=== PATIENT | male | born 1990 | race Hispanic/Latino ===

== ENCOUNTER 2017-07-07 08:24 | Emergency (ER) | payer MEDICAID ==
[2017-07-07 08:29] VITALS: BP 116/75
--- NOTE | 2017-07-07 09:32 | Emergency Department Report ---
ED Psych HPI - General Chief Complaint: Medical Clearance Stated Complaint: PSYCH MED REFILL Time Seen by Provider: 07/07/17 09:08 Source: patient Mode of arrival: Ambulatory - History of Present Illness Initial Comments: Patient is a 26-year-old male with past history of mental health issues who states he is here for medication refill. Patient states she's been unable to take his Wellbutrin or Celexa for the last 2 weeks. Patient isn't a new [facility] and states that they're not really helping him with his meds. Patient states he feels depressed but is not suicidal or homicidal. Patient has no other complaints except for medication refill. Complaint: feels depressed -: week(s) (1) - Related Data Home Medications Medication Instructions Recorded Confirmed Last Taken FLUoxetine [PROzac] 20 mg PO TID 05/24/15 05/24/15 Unknown clonazePAM [Klonopin] 1 mg PO TID 05/24/15 05/24/15 Unknown Previous Rx's Medication Instructions Recorded Last Taken Type Bupropion HCl [Wellbutrin XL] 300 mg PO QAM #30 tab.er.24h 07/07/17 Unknown Rx Citalopram [celeXA] 20 mg PO QDAY #30 tablet 07/07/17 Unknown Rx Allergies Allergy/AdvReac Type Severity Reaction Status Date / Time Latex, Natural Rubber Allergy Rash Verified 05/24/15 00:08 ziprasidone HCl [From Geodon] Allergy Rash Verified 05/24/15 00:08 ziprasidone mesylate Allergy Rash Verified 05/24/15 00:08 [From Geodon] ED Review of Systems ROS: Stated complaint: PSYCH MED REFILL Other details as noted in HPI Comment: All other systems reviewed and negative ED Past Medical Hx - Past Medical History Previous Medical History?: Yes Hx Liver Disease: Yes (Hepatitis C) Hx Psychiatric Treatment: Yes (depression) - Surgical History Past Surgical History?: No - Social History Smoking Status: Current Every Day Smoker Substance Use Type: Prescribed - Medications Home Medications: Home Medications Medication Instructions Recorded Confirmed Last Taken Type FLUoxetine [PROzac] 20 mg PO TID 05/24/15 05/24/15 Unknown History clonazePAM [Klonopin] 1 mg PO TID 05/24/15 05/24/15 Unknown History Bupropion HCl [Wellbutrin XL] 300 mg PO QAM #30 tab.er.24h 07/07/17 Unknown Rx Citalopram [celeXA] 20 mg PO QDAY #30 tablet 07/07/17 Unknown Rx ED Physical Exam - General Limitations: No Limitations General appearance: alert, in no apparent distress - Head Head exam: Present: atraumatic, normocephalic - Eye Eye exam: Present: normal appearance - ENT ENT exam: Present: mucous membranes moist - Neck Neck exam: Present: normal inspection - Respiratory Respiratory exam: Present: normal lung sounds bilaterally. Absent: respiratory distress - Cardiovascular Cardiovascular Exam: Present: regular rate, normal rhythm. Absent: systolic murmur, diastolic murmur, rubs, gallop - GI/Abdominal GI/Abdominal exam: Present: soft, normal bowel sounds - Rectal Rectal exam: Present: deferred - Extremities Exam Extremities exam: Present: normal inspection - Back Exam Back exam: Present: normal inspection - Neurological Exam Neurological exam: Present: alert, oriented X3 - Psychiatric Psychiatric exam: Present: normal affect, normal mood - Skin Skin exam: Present: warm, dry, intact, normal color. Absent: rash ED Course Vital Signs 07/07/17 08:25 Temperature 98 F Pulse Rate 98 H Respiratory 20 Rate Blood Pressure 116/75 O2 Sat by Pulse 99 Oximetry ED Medical Decision Making - Medical Decision Making Patient is a nonmedical emergency however does have Medicaid and does not cope. Patient will be restarted on his medications will be discharged home. Critical care attestation.: If time is entered above; I have spent that time in minutes in the direct care of this critically ill patient, excluding procedure time. ED Disposition Clinical Impression: Medication refill Disposition: DC- TO HOME OR SELFCARE Is pt being admited?: No Does the pt Need Aspirin: No Condition: Stable Prescriptions: Bupropion HCl [Wellbutrin XL] 300 mg PO QAM #30 tab.er.24h Citalopram [celeXA] 20 mg PO QDAY #30 tablet Referrals: PRIMARY CARE, [Primary Care Provider] - 3-5 Days
== END 2017-07-07 09:52 | disposition home or self-care (01) ==
LOC: ED 08:24
DX: Z76.0 Encounter for issue of repeat prescription (principal); F32.9 Major depressive disorder, single episode, unspecified; F17.200 Nicotine dependence, unspecified, uncomplicated; Z86.19 Personal history of other infectious and parasitic diseases; Z91.040 Latex allergy status; Z88.8 Allergy status to other drugs, medicaments and biological substances
CPT/HCPCS: 99282

== ENCOUNTER 2017-07-21 01:49 | Emergency (ER) | payer MEDICAID ==
[2017-07-21 01:53] VITALS: BP 115/88
[2017-07-21] MEDS ORDERED: ULTRAM PO ONE (03:54)
--- NOTE | 2017-07-21 03:59 | Emergency Department Report ---
ED ENT HPI - General Chief complaint: Dental/Oral Stated complaint: TOOTHACHE Time Seen by Provider: 07/21/17 03:54 Source: patient Mode of arrival: Ambulatory Limitations: No Limitations - History of Present Illness Initial comments: 27-year-old male comes in for complaint of left tooth ache and left lower wisdom tooth pain intermittent 3-1/2 weeks. Patient reports that he took Motrin earlier tonight. He reports his pain is stabbing and 10 out of 10. Patient reports history of depression and hepatitis C. MD complaint: tooth pain -: week(s) (3.5) Location: tooth # (16,17) Severity: severe Severity scale (0 -10): 10 Quality: stabbing Consistency: constant, intermittent Improves with: none Worsens with: none - Related Data Home Medications Medication Instructions Recorded Confirmed Last Taken FLUoxetine [PROzac] 20 mg PO TID 05/24/15 05/24/15 Unknown clonazePAM [Klonopin] 1 mg PO TID 05/24/15 05/24/15 Unknown Previous Rx's Medication Instructions Recorded Last Taken Type Bupropion HCl [Wellbutrin XL] 300 mg PO QAM #30 tab.er.24h 07/07/17 Unknown Rx Citalopram [celeXA] 20 mg PO QDAY #30 tablet 07/07/17 Unknown Rx Amoxicillin [Amoxicillin TAB] 875 mg PO BID #20 tablet 07/21/17 Unknown Rx traMADol [Ultram 50 MG tab] 50 mg PO Q6HR PRN #20 tablet 07/21/17 Unknown Rx Allergies Allergy/AdvReac Type Severity Reaction Status Date / Time Latex, Natural Rubber Allergy Rash Verified 05/24/15 00:08 ziprasidone HCl [From Geodon] Allergy Rash Verified 05/24/15 00:08 ziprasidone mesylate Allergy Rash Verified 05/24/15 00:08 [From Geodon] ED Dental HPI - General Chief complaint: Dental/Oral Stated complaint: TOOTHACHE Time Seen by Provider: 07/21/17 03:54 Source: patient Mode of arrival: Ambulatory Limitations: No Limitations - Related Data Home Medications Medication Instructions Recorded Confirmed Last Taken FLUoxetine [PROzac] 20 mg PO TID 05/24/15 05/24/15 Unknown clonazePAM [Klonopin] 1 mg PO TID 05/24/15 05/24/15 Unknown Previous Rx's Medication Instructions Recorded Last Taken Type Bupropion HCl [Wellbutrin XL] 300 mg PO QAM #30 tab.er.24h 07/07/17 Unknown Rx Citalopram [celeXA] 20 mg PO QDAY #30 tablet 07/07/17 Unknown Rx Amoxicillin [Amoxicillin TAB] 875 mg PO BID #20 tablet 07/21/17 Unknown Rx traMADol [Ultram 50 MG tab] 50 mg PO Q6HR PRN #20 tablet 07/21/17 Unknown Rx Allergies Allergy/AdvReac Type Severity Reaction Status Date / Time Latex, Natural Rubber Allergy Rash Verified 05/24/15 00:08 ziprasidone HCl [From Geodon] Allergy Rash Verified 05/24/15 00:08 ziprasidone mesylate Allergy Rash Verified 05/24/15 00:08 [From Geodon] ED Review of Systems ROS: Stated complaint: TOOTHACHE Other details as noted in HPI Constitutional: denies: chills, fever ENT: dental pain. denies: ear pain ED Past Medical Hx - Past Medical History Previous Medical History?: Yes Hx Liver Disease: Yes (Hepatitis C) Hx Psychiatric Treatment: Yes (depression) - Surgical History Past Surgical History?: No - Social History Smoking Status: Current Every Day Smoker - Medications Home Medications: Home Medications Medication Instructions Recorded Confirmed Last Taken Type FLUoxetine [PROzac] 20 mg PO TID 05/24/15 05/24/15 Unknown History clonazePAM [Klonopin] 1 mg PO TID 05/24/15 05/24/15 Unknown History Bupropion HCl [Wellbutrin XL] 300 mg PO QAM #30 tab.er.24h 07/07/17 Unknown Rx Citalopram [celeXA] 20 mg PO QDAY #30 tablet 07/07/17 Unknown Rx Amoxicillin [Amoxicillin TAB] 875 mg PO BID #20 tablet 07/21/17 Unknown Rx traMADol [Ultram 50 MG tab] 50 mg PO Q6HR PRN #20 tablet 07/21/17 Unknown Rx ED Physical Exam - General Limitations: No Limitations General appearance: alert, in no apparent distress - Head Head exam: Present: atraumatic, normocephalic - Expanded ENT Exam Expanded Teeth exam: Present: dental caries (10), fractured tooth # (16), dental tenderness # (17), gingival enlargement - Neck Neck exam: Present: normal inspection, full ROM. Absent: lymphadenopathy ED Course Vital Signs 07/21/17 07/21/17 01:47 01:53 Temperature 97.7 F 97.9 F Pulse Rate 68 62 Respiratory 18 18 Rate Blood Pressure 115/88 115/88 O2 Sat by Pulse 98 98 Oximetry ED Medical Decision Making - Medical Decision Making Assessment evaluated by this provider fast track. We will give patient a tramadol now. Discharge patient on amoxicillin 875 twice a day for 10 days and tramadol for pain. Discussed the patient will refer him to several dentists as she needs to follow up. Patient verbalized understanding. Critical care attestation.: If time is entered above; I have spent that time in minutes in the direct care of this critically ill patient, excluding procedure time. ED Disposition Clinical Impression: Dental abscess, Dental caries, Tooth impaction Disposition: TO HOME OR SELFCARE Is pt being admited?: No Does the pt Need Aspirin: No Condition: Stable Instructions: Dental Abscess (ED), Dental Caries (ED) Additional Instructions: Please complete antibiotics as prescribed. Please take pain medication as prescribed. Please follow-up with his dentist for evaluation and treatment. Prescriptions: Amoxicillin [Amoxicillin TAB] 875 mg PO BID #20 tablet traMADol [Ultram 50 MG tab] 50 mg PO Q6HR PRN #20 tablet PRN Reason: Pain Referrals: PRIMARY CARE, [Primary Care Provider] - 3-5 Days [facility] [Outside] - 3-5 Days [facility] [Outside] - 3-5 Days [facility] [Provider Group] - 3-5 Days Forms: Work/School Release Form(ED)
== END 2017-07-21 04:23 | disposition home or self-care (01) ==
LOC: ED 01:49
DX: K04.7 Periapical abscess without sinus (principal); K02.9 Dental caries, unspecified; K01.1 Impacted teeth; F17.200 Nicotine dependence, unspecified, uncomplicated
CPT/HCPCS: 99282

== ENCOUNTER 2017-08-12 14:54 | Emergency (ER) | payer MEDICAID ==
[2017-08-12 15:19] VITALS: BP 116/72
== END 2017-08-12 15:50 | disposition left against medical advice (07) ==
LOC: ED 14:54
DX: R45.851 Suicidal ideations (principal); Z91.040 Latex allergy status; Z88.8 Allergy status to other drugs, medicaments and biological substances; Z53.21 Procedure and treatment not carried out due to patient leaving prior to being seen by health care provider

== ENCOUNTER 2017-08-28 22:27 | Emergency (ER) | payer MEDICAID ==
[2017-08-28 23:06] LABS: Basophils # (Auto) 0.1 K/mm3 (0.0-0.1); Basophils % (Auto) 0.6 % (0.0-1.8); Eosinophils % (Auto) 0.5 % (0.0-4.3); Hematocrit 47.3 % (35.5-45.6); Hemoglobin 16.1 gm/dl (11.8-15.2); Lymphocytes # (Auto) 3.1 K/mm3 (1.2-5.4); Mean Corpuscular HGB Conc 34 % (32-34); Mean Corpuscular Hemoglobin 32 pg (28-32); Mean Corpuscular Volume 93 fl (84-94); Monocytes # (Auto) 0.9 K/mm3 (0.0-0.8); Monocytes % (Auto) 9.5 % (0.0-7.3); Platelet Count 291 K/mm3 (140-440); Red Blood Count 5.07 M/mm3 (3.65-5.03)
[2017-08-28 23:15] LABS: BUN/Creatinine Ratio 30; Blood Urea Nitrogen 24 mg/dL (9-20); Calcium 10.1 mg/dL (8.4-10.2); Hemolysis Index 2
[2017-08-28 23:20] VITALS: BP 112/72
[2017-08-29 00:02] LABS: Bilirubin,Urine NEG (Negative); Blood,Urine NEG (Negative); Color,Urine Yellow (Yellow); Mucus,Urine 3+ /HPF
[2017-08-29 00:07] LABS: Benzodiazepines Screen,Urine PRESUMPTIVE NEGATIVE; Methadone Screen,Urine PRESUMPTIVE NEGATIVE; Opiate Screen,Urine PRESUMPTIVE NEGATIVE
--- NOTE | 2017-08-29 00:19 | Emergency Department Report ---
Upper Extremity - HPI Chief Complaint: Skin/Abscess/Foreign Body Stated Complaint: RT ARM PAIN Time Seen by Provider: 08/28/17 23:50 Upper Extremity: Right Shoulder, Right Forearm Occurred When: 1 Day Mechanism: Other (needle in forearm after injecting meth) Severity: mild Symptoms: Yes Bruising/Ecchymosis, No Pain with Movement, No Deformity, No Limited Range of Movement, No Numbness, No Weakness, No Swelling ED Review of Systems ROS: Stated complaint: RT ARM PAIN Other details as noted in HPI Comment: All other systems reviewed and negative Constitutional: denies: fever, malaise Respiratory: denies: cough Cardiovascular: denies: chest pain ED Past Medical Hx - Past Medical History Hx Liver Disease: Yes (Hepatitis C) Hx Psychiatric Treatment: Yes (depression) - Surgical History Past Surgical History?: No - Social History Smoking Status: Current Every Day Smoker Substance Use Type: Alcohol - Medications Home Medications: Home Medications Medication Instructions Recorded Confirmed Last Taken Type FLUoxetine [PROzac] 20 mg PO TID 05/24/15 05/24/15 Unknown History clonazePAM [Klonopin] 1 mg PO TID 05/24/15 05/24/15 Unknown History Bupropion HCl [Wellbutrin XL] 300 mg PO QAM #30 tab.er.24h 07/07/17 Unknown Rx Citalopram [celeXA] 20 mg PO QDAY #30 tablet 07/07/17 Unknown Rx Amoxicillin [Amoxicillin TAB] 875 mg PO BID #20 tablet 07/21/17 Unknown Rx traMADol [Ultram 50 MG tab] 50 mg PO Q6HR PRN #20 tablet 07/21/17 Unknown Rx Upper Extremity Exam - Exam General: Vital signs noted. No distress. Alert and acting appropriately. Well appearing patient forearm right: multiple bruises and scabs at site of injection, no palpable forearm FB, no abscesses Head and Torso: No HEENT Abnormality, No Neck Tenderness, No Chest/Lungs Abnormality, No Abdominal Tenderness Elbow: Yes Normal Range of Motion in Elbow, No Elbow Tenderness, No Elbow Deformity Forearm: No Forearm Tenderness, No Forearm Deformity, No Pain with Pronation, No Pain with Supination CMS Exam: Yes Normal Distal Pulses, Yes Normal Capillary Refill, Yes Normal Distal Sensation ED Course Vital Signs 08/28/17 08/28/17 08/28/17 22:24 22:34 23:18 Temperature 98.5 F 99.1 F 98.1 F Pulse Rate 72 70 73 Respiratory 18 16 16 Rate Blood Pressure 123/79 123/79 Blood Pressure 112/72 [Left] O2 Sat by Pulse 98 99 98 Oximetry ED Medical Decision Making - Lab Data Result diagrams: 08/28/17 22:41 08/28/17 22:41 Laboratory Results - last 24 hr 08/28/17 08/28/17 08/28/17 22:41 22:41 22:41 WBC RBC Hgb Hct MCV MCH MCHC RDW Plt Count Lymph % (Auto) [place] % (Auto) Eos % (Auto) Baso % (Auto) Lymph # [place] # Eos # Baso # Seg Neutrophils % Seg Neutrophils # Sodium 138 Potassium 4.4 Chloride 95.2 L Carbon Dioxide 29 Anion Gap 18 BUN 24 H Creatinine 0.8 Estimated GFR > 60 BUN/Creatinine Ratio 30 Glucose 82 Calcium 10.1 Urine Color Urine Turbidity Urine pH Ur Specific [place] Urine Protein Urine Glucose (UA) Urine Ketones Urine Blood Urine Nitrite Urine Bilirubin Urine Urobilinogen Ur Leukocyte Esterase Urine WBC (Auto) Urine RBC (Auto) Urine Mucus Salicylates < 0.3 L Urine Opiates Screen Urine Methadone Screen Acetaminophen < 5.0 L Ur Barbiturates Screen Ur Phencyclidine Scrn U Benzodiazepines Scrn Plasma/Serum Alcohol 08/28/17 08/28/17 08/28/17 22:41 22:41 23:09 WBC 9.5 RBC 5.07 H Hgb 16.1 H Hct 47.3 H MCV 93 MCH 32 MCHC 34 RDW 14.0 Plt Count 291 Lymph % (Auto) 33.0 [place] % (Auto) 9.5 H Eos % (Auto) 0.5 Baso % (Auto) 0.6 Lymph # 3.1 [place] # 0.9 H Eos # 0.0 Baso # 0.1 Seg Neutrophils % 56.4 Seg Neutrophils # 5.4 Sodium Potassium Chloride Carbon Dioxide Anion Gap BUN Creatinine Estimated GFR BUN/Creatinine Ratio Glucose Calcium Urine Color Yellow Urine Turbidity Clear Urine pH 5.0 Ur Specific [place] 1.032 H Urine Protein 30 mg/dl Urine Glucose (UA) Neg Urine Ketones 20 Urine Blood Neg Urine Nitrite Neg Urine Bilirubin Neg Urine Urobilinogen 2.0 Ur Leukocyte Esterase Neg Urine WBC (Auto) 1.0 Urine RBC (Auto) 7.0 Urine Mucus 3+ Salicylates Urine Opiates Screen Urine Methadone Screen Acetaminophen Ur Barbiturates Screen Ur Phencyclidine Scrn U Benzodiazepines Scrn Plasma/Serum Alcohol < 0.01 08/28/17 23:09 WBC RBC Hgb Hct MCV MCH MCHC RDW Plt Count Lymph % (Auto) [place] % (Auto) Eos % (Auto) Baso % (Auto) Lymph # [place] # Eos # Baso # Seg Neutrophils % Seg Neutrophils # Sodium Potassium Chloride Carbon Dioxide Anion Gap BUN Creatinine Estimated GFR BUN/Creatinine Ratio Glucose Calcium Urine Color Urine Turbidity Urine pH Ur Specific [place] Urine Protein Urine Glucose (UA) Urine Ketones Urine Blood Urine Nitrite Urine Bilirubin Urine Urobilinogen Ur Leukocyte Esterase Urine WBC (Auto) Urine RBC (Auto) Urine Mucus Salicylates Urine Opiates Screen Presumptive negative Urine Methadone Screen Presumptive negative Acetaminophen Ur Barbiturates Screen Presumptive negative Ur Phencyclidine Scrn Presumptive negative U Benzodiazepines Scrn Presumptive negative Plasma/Serum Alcohol Vital Signs - 24 hr 08/28/17 08/28/17 08/28/17 22:24 22:34 23:18 Temperature 98.5 F 99.1 F 98.1 F Pulse Rate 72 70 73 Respiratory 18 16 16 Rate Blood Pressure 123/79 123/79 Blood Pressure 112/72 [Left] O2 Sat by Pulse 98 99 98 Oximetry - Radiology Data Radiology results: image reviewed interpreted by me: I personally reviewed forearm radiograph. No fracture. No radiopaque foreign body. No soft tissue swelling. - Medical Decision Making Mr. Siddiqi presents with possible FB, He was unclear if syringe needle broke into forearm. No needle seen on xray. Dc'd home. Patient has a history of polysubstance abuse, depression and hepatitis C. No suicidal ideation. Critical care attestation.: If time is entered above; I have spent that time in minutes in the direct care of this critically ill patient, excluding procedure time. ED Disposition Clinical Impression: IV drug abuse Disposition: DC-01 TO HOME OR SELFCARE Is pt being admited?: No Does the pt Need Aspirin: No Condition: Stable Instructions: Methamphetamine Abuse (ED) Referrals: [facility] [Outside] - 3-5 Days Time of Disposition: 00:19
--- NOTE | 2017-08-29 00:23 | XRay Report ---
FINAL REPORT PROCEDURE: XR FOREARM 1V RT TECHNIQUE: AP view of the right forearm was obtained.. CPT 41545 HISTORY: Evaluate foreign body COMPARISON: No prior studies are available for comparison. FINDINGS: No radiopaque foreign bodies are seen. Bony structures appear grossly normal on this single view. No fracture is identified. No focal bone loss or abnormal periosteal reaction is seen. IMPRESSION: No evidence of radiopaque foreign body.
[2017-08-29 00:31] LABS: Amphetamine Screen,Urine PRESUMPTIVE POSITIVE; Cannabinoid Screen,Urine PRESUMPTIVE POSITIVE; Cocaine Screen,Urine PRESUMPTIVE POSITIVE
== END 2017-08-29 00:38 | disposition home or self-care (01) ==
LOC: ED 22:27
DX: M79.601 Pain in right arm (principal); F19.10 Other psychoactive substance abuse, uncomplicated; F17.200 Nicotine dependence, unspecified, uncomplicated
CPT/HCPCS: 36415; 73090; 80048; 80307; 81001; 85025; 99284; G0480; 80320